=== PATIENT | female | born 1950 | race Caucasian/White ===

== ENCOUNTER 2017-06-18 13:53 | Emergency (ER) | payer MEDICARE, OTHER ==
--- NOTE | 2017-06-18 14:27 | ED Physician Documentation ---
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 Today at approximately 10 AM she started to feel like the right side of her face was not working and this was associated with numbness of the right arm and right leg. There is no weakness with it and she is not having any gait difficulty. She has had similar symptoms with migraines in the past but there is no associated headache with this.) Review of Systems Ten Systems: 10 systems reviewed and negative Constitutional: reports: Reviewed and negative Nose: reports: Reviewed and negative Throat: reports: Reviewed and negative Cardiac: reports: Reviewed and negative PD PAST MEDICAL HISTORY - Present Medications Home Medications: Ambulatory Orders Medication Instructions Recorded Confirmed No Known Home Medications [No 06/18/17 06/18/17 Known Home Medications] - Allergies Allergies/Adverse Reactions: Allergies Allergy/AdvReac Type Severity Reaction Status Date / Time amoxicillin Allergy Hives Verified 06/18/17 14:02 azithromycin Allergy Hives Verified 06/18/17 14:04 crab Allergy Hives Verified 06/18/17 14:04 Nitrate Analogues Allergy Dizziness Verified 06/18/17 14:04 PD ED PE NORMAL - Vitals Vital signs reviewed: Yes - General General: Alert and oriented X 3, No acute distress - HEENT HEENT: PERRL, EOMI, Other (There is a healing surgical scar over the forehead centrally in the bridge of the nose with fresh Steri-Strips over the lymph node dissection posterior to the jugular veins on either side in zone 3.) - Neck Neck: Supple, no meningeal sign, No bony TTP - Cardiac Cardiac: RRR, No murmur - Respiratory Respiratory: No respiratory distress, Clear bilaterally - Abdomen Abdomen: Normal bowel sounds, Soft, Non tender - Back Back: No CVA TTP, No spinal TTP - Derm Derm: Normal color, Warm and dry - Extremities Extremities: No deformity, No tenderness to palpate, Normal ROM s pain - Neuro Neuro: Alert and oriented X 3 Eye Opening: Spontaneous Motor: Obeys Commands Verbal: Oriented GCS Score: 15 - Psych Psych: Normal mood, Normal affect NIHSS - Time Time: 14:20 - Level of Consciousness Level of consciousness: (0) Alert, Keenly responsive LOC Questions: (0) Answers both Q's correct LOC Commands: (0) Performs both correctly - Gaze Best Gaze: (0) Normal - Visual Visual: (0) No loss - Facial Palsy Facial Palsy: (0) Normal, symmetrical movement - Motor Arms (both separate) Motor Arm (right): (0) No drift Motor Arm (left): (0) No drift - Motor Legs (both separate) Motor Leg (right): (0) No drift Motor Leg (left): (0) No drift - Limb Ataxia Limb Ataxia: (0) Absent - Sensory Sensory: (1) [id number] loss (mild left arm only, NOT RIGHT) - Best Language Best Language: (0) No aphasia - Dysarthria Dysarthria: (0) Normal - Extinction and Inattention (formally neg Extinction and inattention: (0) No abnormality - Total Score/Results Total Score/Result: 1 Results - Vitals Vitals: Vital Signs - 24 hr 06/18/17 13:59 Temperature 36.6 C Heart Rate 86 Respiratory 15 Rate Blood Pressure 126/58 L O2 Saturation 95 Oxygen O2 Source Room air - EKG (time done) 1437 Rate: Rate (enter#) (81) Rhythm: NSR [place]: Normal Intervals: Normal OK, RBBB QRS: Normal Ischemia: Normal ST segments Computer interpretation: Agree with computer - Labs Labs: Laboratory Tests 06/18/17 06/18/17 06/18/17 14:15 14:15 14:15 WBC 4.9 RBC 4.23 Hgb 13.5 Hct 40.1 MCV 94.6 MCH 32.0 H MCHC 33.8 RDW 14.1 Plt Count 236 MPV 7.9 Neut # 3.5 Lymph # 1.0 L [place] # 0.3 Eos # 0.1 Baso # 0.0 Absolute Nucleated RBC 0.01 Nucleated RBC % 0.2 PT 11.4 INR 1.0 Sodium 137 Potassium 3.9 Chloride 102 Carbon Dioxide 25 Anion Gap 10.0 BUN 18 Creatinine 1.0 Estimated GFR (MDRD) 55 L Glucose 119 H Calcium 9.0 Total Bilirubin 0.4 AST 21 ALT 30 Alkaline Phosphatase 83 Total Protein 7.5 Albumin 4.0 Globulin 3.5 Albumin/Globulin Ratio 1.1 Lipase 16 L - Rads (name of study) CT Head Radiology: EMP read contemporaneously (NAD) Carotid sono Radiology: Prelim report reviewed (normal) PD MEDICAL DECISION MAKING - ED course ED course: 66-year-old with concern for strokelike symptoms, but no real deficits, her NIH stroke scale is 1 but the findings there are on the opposite side of her symptoms. Given that she is 5 days out from surgery and that she presented after 4 hours of symptoms already she is a tenuous TPA candidate and I spoke with Dr. Hernandez at [facility] who agreed that she is not a candidate for TPA, recommend CT angiography of the head and neck, unfortunately R autoinjector is down and CT angiograms cannot be performed for the next 2 days and he recommends a carotid Doppler in lieu of this and also trying to treat her for migraine with Reglan to see if that fixes her. After the administration of Reglan and Benadryl all of her neurologic symptoms went away giving further credence to a migrainous etiology. Departure - Departure Disposition: 01 Home, Self Care Clinical Impression: Migraine aura without headache Condition: Good Record reviewed to determine appropriate education?: Yes Instructions: ED Headache Migraine Comments: Call your doctor to arrange a follow-up appointment, make the next available appointment. In the interim, return anytime if worse or if new symptoms develop.
[2017-06-18] MEDS ORDERED: METOCLOPRAMIDE 10 MG/2 ML VIAL IVP STA (14:34)
[2017-06-18] MEDS ORDERED: diphenhydrAMINE INJ 50 MG/ML VIAL IVP STA (14:34)
--- NOTE | 2017-06-18 14:45 | CT Preliminary Report ---
Exam: CT HEAD W/O STROKE PROTOCOL IMPRESSION: No acute intracranial abnormality. RADIA The call report notification system was initiated by Dr. Prince Ruiz at 14:40 hrs on 06/18/17. The above findings were discussed with Dr. Krishnan by Dr. Prince Ruiz at 14:44 hrs on 06/18/17. SITE ID: [id number]
[2017-06-18 14:47] LABS: EOSINOPHILS # (AUTO) 0.1 10^3/uL (0.0-0.7); EOSINOPHILS % (AUTO) 1.7 %; HGB - HEMOGLOBIN 13.5 g/dL (12.0-16.0); LYMPHOCYTES % (AUTO) 19.7 %; MEAN CORPUSCULAR HGB CONC 33.8 g/dL (32.0-36.0); MEAN CORPUSCULAR VOLUME 94.6 fL (81.0-99.0); MEAN PLATELET VOLUME 7.9 fL (7.9-10.8); MONOCYTES # (AUTO) 0.3 10^3/uL (0.0-1.0); MONOCYTES % (AUTO) 6.6 %; NEUTROPHILS # (AUTO) 3.5 10^3/uL (1.5-6.6); PLT - PLATELET COUNT 236 10^3/uL (130-450); RED BLOOD COUNT 4.23 10^6/uL (4.20-5.40); RED CELL DISTRIBUTION WIDTH 14.1 % (12.0-15.0); WHITE BLOOD COUNT 4.9 x10^3/uL (4.8-10.8)
[2017-06-18 14:53] LABS: PT - PROTHROMBIN TIME 11.4 secs (9.9-12.6)
--- NOTE | 2017-06-18 14:56 | CT Report ---
EXAM: CT HEAD EXAM DATE: 06/18/2017 02:33 PM. CLINICAL HISTORY: CVA symptoms. COMPARISON: None. TECHNIQUE: Multiaxial CT images were obtained from the foramen magnum to the vertex. Reformats: Coron al. IV contrast: None. In accordance with CT protocol optimization, one or more of the following dose reduction techniques w ere utilized for this exam: automated exposure control, adjustment of mA and/or KV based on patient s ize, or use of iterative reconstructive technique. FINDINGS: Parenchyma: No intraparenchymal hemorrhage. No evidence of mass, midline shift, or CT findings of inf arction. Hernandez-white differentiation is distinct. Extraaxial Spaces: Normal for age. No subdural or epidural collections identified. Ventricles: Normal in size and position. Sinuses and Orbits: Imaged paranasal sinuses, orbits, and mastoids show no significant abnormality. Bones: No evidence of fracture or calvarial defect. Other: None. IMPRESSION: No acute intracranial abnormality. RADIA The call report notification system was initiated by Dr. Prince Ruiz at 14:40 hrs on 06/18/17. The above findings were discussed with Dr. Krishnan by Dr. Prince Ruiz at 14:44 hrs on 06/18/17. Referring Provider Line: [phone] SITE ID: [id number]
[2017-06-18 15:00] LABS: ALBUMIN/GLOBULIN RATIO 1.1 (1.0-2.2); BILIRUBIN,TOTAL 0.4 mg/dL (0.2-1.0); TOTAL PROTEIN 7.5 g/dL (6.7-8.2)
--- NOTE | 2017-06-18 15:55 | Ultrasound Preliminary Report ---
Exam: US CAROTID DOPPLER COMPLETE IMPRESSION: No hemodynamically significant stenoses. Validated velocity measurements with angiographic measurements and velocity criteria are extrapolated from diameter data as defined by the Society of Radiologists in Ultrasound Consensus Conference Radi ology 2003; 229;340-346. RADIA SITE ID: [id number]
--- NOTE | 2017-06-18 16:17 | Ultrasound Report ---
EXAM: CAROTID DOPPLER ULTRASOUND EXAM DATE: 06/18/2017 02:49 PM. CLINICAL HISTORY: Cerebral vascular accident symptoms. COMPARISON: CT head without contrast 06/18/2017. TECHNIQUE: Real-time sonographic vascular imaging was performed by the production editor through the caroti d arterial system with a linear transducer utilizing color-flow, Doppler flow and spectral analysis. Multiple telemarketing representative static images were saved for review. FINDINGS: No significant soft or calcific plaque demonstrated in either CCA or ICA. Both external carotid arter ies are patent. Flow within both vertebral arteries is antegrade. RIGHT: RCCA Prox: PSV 95 cm/sec. RCCA Dist: PSV 93 cm/sec, EDV 21 cm/sec. RECA: PSV 93 cm/sec. R Bulb: PSV 58 cm/sec, EDV 10 cm/sec, ICA/CCA ratio 0.62. GREGORY Prox: PSV 69 cm/sec, EDV 24 cm/sec, ICA/CCA ratio 0.74. GREGORY Mid: PSV 81 cm/sec, EDV 24 cm/sec, ICA/CCA ratio 0.87. GREGORY Dist: PSV 80 cm/sec, EDV 23 cm/sec, ICA/CCA ratio 0.86. RVA: PSV 57 cm/sec. RVA flow direction: Antegrade. LEFT: LCCA Prox: PSV 81281 cm/sec. LCCA Dist: PSV 76 cm/sec, EDV 19 cm/sec. LECA: PSV 89 cm/sec. L Bulb: PSV 71 cm/sec, EDV 16 cm/sec, ICA/CCA ratio 0.93. LICA Prox: PSV 47 cm/sec, EDV 13 cm/sec, ICA/CCA ratio 0.61. LICA Mid: PSV 85 cm/sec, EDV 30 cm/sec, ICA/CCA ratio 1.1. LICA Dist: PSV 77 cm/sec, EDV 26 cm/sec, ICA/CCA ratio 1.0. LVA: PSV 66 cm/sec. LVA flow direction: Antegrade. Other: None. IMPRESSION: No hemodynamically significant stenoses. Validated velocity measurements with angiographic measurements and velocity criteria are extrapolated from diameter data as defined by the Society of Radiologists in Ultrasound Consensus Conference Radi ology 2003; 229;340-346. RADIA Referring Provider Line: [phone] SITE ID: [id number]
[2017-06-18 17:06] VITALS: BP 127/66
== END 2017-06-18 16:20 | disposition home or self-care (01) ==
LOC: ED 13:53
DX: G43.109 Migraine with aura, not intractable, without status migrainosus (principal); I45.10 Unspecified right bundle-branch block; C44.309 Unspecified malignant neoplasm of skin of other parts of face; Z98.890 Other specified postprocedural states
CPT/HCPCS: 36415; 70450; 80053; 83690; 85025; 85610; 93005; 93880; 96374; 99284; J1200; J2765

== ENCOUNTER 2019-01-03 10:55 | Emergency (ER) | payer MEDICARE, OTHER ==
[2019-01-03] MEDS ORDERED: MELOXICAM 7.5 MG TABLET PO STA (11:36)
--- NOTE | 2019-01-03 11:37 | ED Physician Documentation ---
History of Present Illness - Stated complaint Stated Complaint: KNEE PX - Chief complaint Chief Complaint: Ext Problem - History obtained from History obtained from: Patient - History of Present Illness Pain level max: 6 Pain level now: 5 - Additonal information Additional information: L knee pain. States started when she was walking in her house. Worse with movement and better with rest. Is using a cane to help her walk. This occurred 2 to 3 days ago. Has not taken anything for pain today. No fall. No trauma. Review of Systems Constitutional: denies: Fever, Chills Cardiac: denies: Chest pain / pressure Respiratory: denies: Cough GI: denies: Nausea, Vomiting, Diarrhea PD PAST MEDICAL HISTORY - Past Medical History Past Medical History: Yes Cardiovascular: None Respiratory: None Endocrine/Autoimmune: None GI: None TEXTBOOK ASSOCIATE: None : None HEENT: None Psych: None Musculoskeletal: None Derm: Other - Past Surgical History Derm: Skin cancer surgery - Present Medications Home Medications: Ambulatory Orders Medication Instructions Recorded Confirmed Meloxicam [Mobic] 15 mg PO DAILY PRN #20 tablet 01/03/19 - Allergies Allergies/Adverse Reactions: Allergies Allergy/AdvReac Type Severity Reaction Status Date / Time amoxicillin Allergy Hives Verified 01/03/19 11:07 azithromycin Allergy Hives Verified 01/03/19 11:07 crab Allergy Hives Verified 01/03/19 11:07 Nitrate Analogues Allergy Dizziness Verified 01/03/19 11:07 - Social History Does the pt smoke?: No Smoking Status: Never smoker Does the pt drink ETOH?: Yes Does the pt have substance abuse?: No - Immunizations Immunizations are current?: Yes - POLST Patient has POLST: No PD ED PE NORMAL - Vitals Vital signs reviewed: Yes - General General: Alert and oriented X 3, No acute distress - HEENT HEENT: Moist mucous membranes - Neck Neck: Supple, no meningeal sign - Derm Derm: Warm and dry - Extremities Extremities: Other (L knee - Mild joint effusion. ACL, MCL, PCL, LCL are intact. No deformity. Neurovascularly intact.) - Neuro Neuro: Alert and oriented X 3 Results - Vitals Vitals: Vital Signs - 24 hr 01/03/19 01/03/19 11:07 13:13 Temperature 36.7 C 37.5 C Heart Rate 77 84 Respiratory 16 16 Rate Blood Pressure 149/72 H 117/63 O2 Saturation 97 97 Oxygen O2 Source Room air - Rads (name of study) L knee xray Radiology: Prelim report reviewed, EMP read contemporaneously, See rad report (No acute osseous abnormalities. Mild degenerative changes of the left knee. ) PD MEDICAL DECISION MAKING - ED course Complexity details: reviewed results, re-evaluated patient, considered differential, d/w patient ED course: 68-year-old female with what appears to be a meniscus injury of the left knee. Small joint effusion. She is ambulating with a crutch. Will place on anti- inflammatory medications. She has a neoprene brace as well. We will continue this. We will have her follow-up with orthopedics for further care. Patient counseled regarding signs and symptoms for which I believe and urgent re- evaluation would be necessary. Patient with good understanding of and agreement to plan and is comfortable going home at this time This document was made in part using voice recognition software. While efforts are made to proofread this document, sound alike and grammatical errors may occur. Departure - Departure Disposition: 01 Home, Self Care Clinical Impression: Effusion, left knee Condition: Good Instructions: ED Effusion Knee Follow-Up: your,doctor in 1 week [Other] Dann Kuhn MD [Provider Admit Priv/Credential] - Prescriptions: Meloxicam [Mobic] 15 mg PO DAILY PRN #20 tablet PRN Reason: pain Comments: Use the medications as prescribed. Return if you worsen. You can bear weight as tolerated. You should follow-up with orthopedics for further care. Discharge Date/Time: 01/03/19 13:14
--- NOTE | 2019-01-03 12:37 | XRAY Report ---
Reason: L knee pain Procedure Date: 01/03/2019 Accession Number: [id number] / [id number] Procedure: XR - Knee 4 View LT CPT Code: FULL RESULT: EXAM: LEFT KNEE RADIOGRAPHY EXAM DATE: 01/03/2019 11:47 AM. CLINICAL HISTORY: L knee pain. COMPARISON: None. TECHNIQUE: 4 views. FINDINGS: Bones: No acute fracture or bony lesion. Mild degenerative spurring. Joints: Mild narrowing of the medial compartment and patellofemoral compartment of the left knee. Small left knee effusions. No dislocation . Soft Tissues: No radiopaque foreign bodies. IMPRESSION: 1. No acute osseous abnormalities. 2. Mild degenerative changes of the left knee. RADIA
[2019-01-03 13:14] VITALS: BP 117/63
== END 2019-01-03 13:14 | disposition home or self-care (01) ==
LOC: ED 10:55
DX: M25.462 Effusion, left knee (principal); M17.12 Unilateral primary osteoarthritis, left knee
CPT/HCPCS: 73564; 99283; 99284; A9270

== ENCOUNTER 2020-02-28 09:13 | Outpatient (CLI) | payer MEDICARE, OTHER | END 2020-02-28 09:14 | disposition home or self-care (01) | LOC: COV 09:13 | PROVIDERS: ATTEND Family Medicine | DX: R06.02 Shortness of breath (principal); Z20.828 Contact with and (suspected) exposure to other viral communicable diseases; M79.10 Myalgia, unspecified site; R53.83 Other fatigue; R68.83 Chills (without fever); J02.9 Acute pharyngitis, unspecified; R19.7 Diarrhea, unspecified; R09.81 Nasal congestion ==

== ENCOUNTER 2020-03-11 09:16 | Outpatient (CLI) | payer MEDICARE, OTHER | END 2020-03-11 09:17 | disposition home or self-care (01) | LOC: COV 09:16 | PROVIDERS: ATTEND Family Medicine | DX: R05 Cough (principal); Z20.828 Contact with and (suspected) exposure to other viral communicable diseases; R06.02 Shortness of breath; M79.10 Myalgia, unspecified site; R53.83 Other fatigue; R68.83 Chills (without fever); J02.9 Acute pharyngitis, unspecified; R09.81 Nasal congestion; R11.2 Nausea with vomiting, unspecified ==